=== PATIENT | male | born 1955 | race Caucasian/White ===

== ENCOUNTER → 2018-01-01 13:34 | Outpatient (CLI) | payer MEDICARE, SELFPAY ==
--- NOTE | 2018-01-01 13:40 | RAD_ITS ---
STUDY: X-RAY - LUMBAR SPINE REASON FOR EXAM: Male, 62 years old. Pain. History of mechanical heart. TECHNIQUE: 3 view(s) of the lumbar spine were obtained. COMPARISON: None FINDINGS: Normal lumbar lordosis. There is no substantial scoliosis. There is a normal alignment of the vertebrae. Mild disc space narrowing L1-2, L3-4 and L5-S1. Small marginal osteophytes at several levels. Mild anterior wedging L1 which is likely old. The soft tissue structures are unremarkable. RAD/Lumbar Spine 2 or 3 Views IMPRESSION: Mild degenerative changes . Old mild compression fracture L1. Electronically Signed: Donell Evans MD at 4:55 EST , Service support ,
--- NOTE | 2018-01-01 13:53 | RAD_ITS ---
STUDY: X-RAY - THORACIC SPINE REASON FOR EXAM: Male, 62 years old. Pain. No known injury. History of mechanical heart. TECHNIQUE: 4 view(s) of the thoracic spine were obtained. COMPARISON: None. FINDINGS: Normal kyphosis of the thoracic spine. There is no substantial scoliosis. Normal thoracic vertebrae. Small marginal osteophytes at multiple levels. No significant disc space narrowing. The soft tissue structures are unremarkable. Sternal wires are present. Postoperative changes compatible within a mechanical heart by history. Cardiac pacemaker left hemithorax. RAD/Thoracic Spine 3 Views IMPRESSION: Mild multilevel degenerative changes of the thoracic spine. No fracture identified. Electronically Signed: Donell Evans MD at 5:06 EST , Service support ,
== END ==
PROVIDERS: Family Provider Internal Medicine; PCP Internal Medicine; Referring Provider Anesthesiology Pain Medicine; Visit Provider Anesthesiology Pain Medicine
DX: M54.9 Dorsalgia, unspecified (principal)
CPT/HCPCS: 72072; 72100